=== PATIENT | female | born 1990 ===

== ENCOUNTER → 2022-02-23 08:00 | Outpatient (CLI) | payer OTHER | END | disposition home or self-care (01) | LOC: LAB 08:00 → ADM 11:45 → CIR.AMB 02-28 11:45 → EDSTATUS 02-28 11:45 → CIR.AMB 02-28 13:00 | PROVIDERS: ATTEND Obstetrics & Gynecology | DX: N87.9 Dysplasia of cervix uteri, unspecified (principal) ==

== ENCOUNTER 2022-03-28 09:17 | Day surgery (SDC) | payer OTHER | END 2022-03-28 19:50 | disposition home or self-care (01) | LOC: CIR.AMB 09:17 | PROVIDERS: ATTEND Obstetrics & Gynecology | DX: D06.9 Carcinoma in situ of cervix, unspecified (principal) ==